=== PATIENT | female | born 1950 | race Caucasian/White ===

== ENCOUNTER 2025-01-20 11:40 | Day surgery (SDC) | payer MEDICARE, BC, SELFPAY ==
[2025-01-19 14:45] VITALS: BMI 21.8
[2025-01-20] VITALS (12 sets, daily range): BP systolic 121–200; BP diastolic 61–125; PULSE 63–120; RESP 12–25; TEMP 36.6–37; O2SAT 94–100; BMI 21.6
[2025-01-20] MEDS: SODIUM CHLORIDE 0.9% 500 ML 500 ML 20 ML IV (12:06)
[2025-01-20] MEDS: fentaNYL CIT INJ 50 mCg/ML AMP 2ML (ASD USE ONLY) IVP (13:16)
[2025-01-20] MEDS: MIDAZOLAM INJ 1 MG/ML VIAL 2 ML (ASD USE ONLY) 2 MG IVP (13:22)
--- NOTE | 2025-01-20 14:11 | SUR.PHASEII ---
1345: Pt received for recovery. Report Deny LENZ. Pt obtunded. Resp even, unlabored. VS stable. 1400: Pt arousable with eye opening. Is coherent, responds appropriately then drifts back to sleep. Resp even, unlabored. VS stable. Denies pain. 1415: Pt more awake. VS stable. Sitting up tolerating po fluids with no difficulty swallowing and no n/v.
--- NOTE | 2025-01-20 15:24 | SUR.PHASEII ---
1438: Pt fully awake, oriented x3. VS stable. Denies pain. Pt assisted to restroom. Ambulations steady. Pt and stated understanding of discharge instructions. Pt discharged from [facility] in stable condition.
== END 2025-01-20 14:38 | disposition home or self-care (01) ==
PROVIDERS: PCP Family Medicine; Referring Provider Specialist; Visit Provider Specialist
PROC: 0DBE8ZX Excision of Large Intestine, Via Natural or Artificial Opening Endoscopic, Diagnostic (ICD-10-PCS; CPT 45380; principal; 2025-01-20 13:15)
DX: K64.9 Unspecified hemorrhoids (principal); K57.31 Diverticulosis of large intestine without perforation or abscess with bleeding; Q27.33 Arteriovenous malformation of digestive system vessel
CPT/HCPCS: 45378; J1200; J2250; J3010; J7999